=== PATIENT | male | born 1965 | race Caucasian/White ===

== ENCOUNTER 2021-02-22 04:11 | Day surgery (SDC) | payer OTHER ==
[2021-02-19 08:46] VITALS: BMI 29.2
[2021-02-22] MEDS ORDERED: PROPOFOL 20 ML ONE (08:27)
[2021-02-22] MEDS ORDERED: MIDAZOLAM HCL 2 MG/2 ML SINGLE DOSE VIAL ONE (08:27)
[2021-02-22 09:36] VITALS: PULSE 77
[2021-02-22 10:29] VITALS: BP 145/85; TEMP 97.3
[2021-02-22] MEDS ORDERED: ACETAMINOPHEN 325 MG TABLET (FP) PO PRN (10:43)
[2021-02-22] MEDS ORDERED: ONDANSETRON 4 MG/2 ML VIAL IVPUSH PRN (10:43)
[2021-02-22] MEDS ORDERED: LACTATED RINGERS SOLUTION 1,000 ML IV SCH (10:45)
== END 2021-02-22 11:10 | disposition home or self-care (01) ==
LOC: JASU-SURG 04:11
PROVIDERS: ATTEND Urology
PROC: 0TF4XZZ Fragmentation in Left Kidney Pelvis, External Approach (ICD-10-PCS; principal; 2021-02-22 08:30)
DX: N20.0 Calculus of kidney (principal)
CPT/HCPCS: 82962

== ENCOUNTER 2021-07-07 16:56 | Emergency (ER) | payer OTHER ==
[2021-07-07 17:25] VITALS: BP 183/105; PULSE 69; TEMP 98.4; BMI 29.9
[2021-07-07] MEDS ORDERED: ACETAMINOPHEN 325 MG TABLET (FP) PO ONE (17:45)
[2021-07-07] MEDS ORDERED: ACETAMINOPHEN 325 MG TABLET (FP) ONE (17:55)
== END 2021-07-07 17:57 | disposition home or self-care (01) ==
LOC: FER 16:56
DX: S09.90XA Unspecified injury of head, initial encounter (principal); W01.0XXA Fall on same level from slipping, tripping and stumbling without subsequent striking against object, initial encounter
CPT/HCPCS: 99283-25

== ENCOUNTER 2022-12-12 04:18 | Day surgery (SDC) | payer OTHER ==
[2022-12-06 15:46] VITALS: BMI 30.7
[2022-12-12 10:30] VITALS: RESP 18
[2022-12-12] MEDS ORDERED: MIDAZOLAM HCL 2 MG/2 ML SINGLE DOSE VIAL ONE (12:55)
[2022-12-12] MEDS ORDERED: ONDANSETRON 4 MG/2 ML VIAL ONE (13:05)
[2022-12-12 13:32] VITALS: TEMP 98
[2022-12-12 13:58] VITALS: BP 150/90; PULSE 68
== END 2022-12-12 14:18 | disposition home or self-care (01) ==
LOC: JASU-SURG 04:18
PROVIDERS: ATTEND Urology
PROC: 0TF3XZZ Fragmentation in Right Kidney Pelvis, External Approach (ICD-10-PCS; principal; 2022-12-12 11:30)
DX: N20.0 Calculus of kidney (principal)
CPT/HCPCS: 82962

== ENCOUNTER 2024-09-16 05:11 | Day surgery (SDC) | payer BC ==
[2024-09-12 13:25] VITALS: BMI 29.9
[2024-09-16 10:46] VITALS: RESP 18
[2024-09-16] MEDS ORDERED: MIDAZOLAM HCL 2 MG/2 ML SINGLE DOSE VIAL ONE (12:01)
[2024-09-16 13:25] VITALS: BP 151/90; PULSE 78; TEMP 97.7
== END 2024-09-16 13:38 | disposition home or self-care (01) ==
LOC: JASU-SURG 05:11
PROVIDERS: ATTEND Urology
PROC: 0TF4XZZ Fragmentation in Left Kidney Pelvis, External Approach (ICD-10-PCS; principal; 2024-09-16 12:09)
DX: N20.0 Calculus of kidney (principal)
CPT/HCPCS: 82962